=== PATIENT | female | born 1960 | race African-American/Black ===

== ENCOUNTER 2017-04-19 22:43 | Emergency (ER) | payer MEDICARE ==
[2017-04-19 23:25] LABS: ADD MAN DIFF? NO
[2017-04-19] MEDS: morphine 4 MG/ML VIAL IV (23:26)
[2017-04-19] MEDS: ONDANSETRON 4 MG INJ IV (23:26)
[2017-04-19 23:31] LABS: WHITE BLOOD COUNT 7.7 10^3/ul (4.8-10.8)
[2017-04-19 23:31] LABS: BASOPHIL # 0.1 10^3/ul (0.0-0.1); BASOPHILS % 1.6 % (0.0-2.0); EOSINOPHILS # 0.1 10^3/ul (0.0-0.5); EOSINOPHILS % 0.8 % (0.0-7.0); HEMATOCRIT 42.9 % (37.0-47.0); HEMOGLOBIN 14.1 g/dl (12.0-16.0); LYMPHOCYTES # 3.3 10^3/ul (0.8-2.9); LYMPHOCYTES % 42.3 % (15.0-51.0); MEAN CORPUSCULAR HEMOGLOBIN 27.8 pg (29.0-33.0); MEAN CORPUSCULAR HGB CONC 32.9 g/dl (32.0-37.0); MEAN CORPUSCULAR VOLUME 84.4 fl (82.0-101.0); MEAN PLATELET VOLUME 9.6 fl (7.4-10.4); MONOCYTE # 0.8 10^3/ul (0.3-0.9); MONOCYTES % 10.4 % (0.0-11.0); NEUTROPHIL # 3.4 10^3/ul (1.6-7.5); NEUTROPHILS % 44.5 % (39.0-77.0); PLATELET COUNT 365 10^3/UL (140-415); RED BLOOD COUNT 5.08 10^6/ul (4.20-5.40); RED CELL DISTRIBUTION WIDTH 14.5 % (11.5-14.5)
[2017-04-20 00:24] LABS: ANION GAP 18 (8-16); BLOOD UREA NITROGEN 13 mg/dl (7-20); CALCIUM 10.2 mg/dl (8.4-10.2); CARBON DIOXIDE 22 mmol/L (21-31); CHLORIDE 105 mmol/L (97-110); CREATININE 0.87 mg/dl (0.44-1.00); GLUCOSE 95 mg/dl (70-220); INR 0.98; POTASSIUM 4.1 mmol/L (3.5-5.1); PROTIME 13.1 Sec (11.9-14.9); SODIUM 141 mmol/L (135-144)
[2017-04-20 00:25] LABS: PARTIAL THROMBOPLASTIN TIME 25.5 Sec (25.0-35.0)
== END 2017-04-20 03:10 | disposition home or self-care (01) ==
LOC: E/R 22:43
DX: M25.552 Pain in left hip (principal); M25.562 Pain in left knee; J45.909 Unspecified asthma, uncomplicated; F17.210 Nicotine dependence, cigarettes, uncomplicated; R07.9 Chest pain, unspecified; W18.39XA Other fall on same level, initial encounter; Y92.9 Unspecified place or not applicable
CPT/HCPCS: 36415; 72192; 73510; 73550; 73560; 80048; 85025; 85610; 85730; 96374; 96375; 99285-25